=== PATIENT | male | born 1945 | race African-American/Black ===

== ENCOUNTER 2022-11-12 04:27 | Day surgery (SDC) | payer OTHER ==
[2022-11-11 09:34] VITALS: BMI 24.0
[2022-11-12] MEDS ORDERED: BACITRACIN ZINC 15 GM TUBE TOPICAL OINTMENT ONE (12:32)
[2022-11-12] MEDS ORDERED: MIDAZOLAM HCL 2 MG/2 ML SINGLE DOSE VIAL ONE (13:35)
[2022-11-12] MEDS ORDERED: PROPOFOL 20 ML ONE (13:35)
[2022-11-12] MEDS ORDERED: ceFAZolin SODIUM 1 GM VIAL IVPB ONE (13:55)
[2022-11-12] MEDS ORDERED: ONDANSETRON 4 MG/2 ML VIAL ONE (13:56)
[2022-11-12] MEDS ORDERED: ceFAZolin SODIUM 1 GM VIAL ONE (13:56)
[2022-11-12] MEDS ORDERED: DEXAMETHASONE SOD PHOSPHATE 4 MG/1 ML VIAL ONE (13:56)
[2022-11-12] MEDS ORDERED: ONDANSETRON 4 MG/2 ML VIAL IVPUSH PRN (15:06)
[2022-11-12] MEDS ORDERED: oxyCODONE HCL 5 MG TABLET PO PRN (15:06)
[2022-11-12] MEDS ORDERED: ACETAMINOPHEN 1000 MG/100 ML BAG IVPB PRN (15:07)
[2022-11-12] MEDS ORDERED: LACTATED RINGERS SOLUTION 1,000 ML IV SCH (15:15)
[2022-11-12] MEDS ORDERED: ACETAMINOPHEN INJECTION 100 ML IVPB ONE (15:29)
[2022-11-12 17:33] VITALS: RESP 20
[2022-11-12] MEDS ORDERED: oxyCODONE HCL 5 MG TABLET ONE (17:42)
[2022-11-12 18:16] VITALS: BP 130/70; PULSE 76; TEMP 98
== END 2022-11-12 18:21 | disposition home or self-care (01) ==
LOC: JASU-SURG 04:27
PROVIDERS: ATTEND Urology
PROC: 0V503ZZ Destruction of Prostate, Percutaneous Approach (ICD-10-PCS; principal; 2022-11-12 13:30)
DX: C61 Malignant neoplasm of prostate (principal)
CPT/HCPCS: 55873; C2618; 82962; 94760; C1769